=== PATIENT | male | born 1955 | race African-American/Black ===

== ENCOUNTER 2022-07-26 07:46 | Inpatient (IN) | payer BC, MEDICAID ==
[~2022-07-26] VITALS: Ht 177.8 cm; Wt 81.2 kg
[2022-07-26] MEDS ORDERED: PANTOPRAZOLE SODIUM 40 MG/VIAL IV STA (08:03)
[2022-07-26] MEDS ORDERED: ONDANSETRON HCL 4MG/2ML INJ IV STA (08:03)
[2022-07-26] MEDS ORDERED: SODIUM CHLORIDE 0.9% 1,000 ML IV ONE ×2 (08:15→08:30)
[2022-07-26 08:46] LABS: BG BASE EXCESS -4.3 mmol/L (-2.0-2.0); BG CARBOXYHEMOGLOBIN 0.8 % (0.5-1.5); BG DEOXYHEMOGLOBIN 2.1 % (0.0-5.0); BG FRACTION INSPIRED OXYGEN 21; BG METHEMOGLOBIN 0.3 % (0.0-1.5); BG OXYGEN SATURATION 97.9 % (92.0-98.5); BG OXYHEMOGLOBIN 96.8 % (94.0-97.0); BG PCO2 26.3 mmHg (35.0-45.0); BG PH 7.454 (7.350-7.450); BG SAMPLE SITE RIGHT RADIAL; BG TOTAL HEMOGLOBIN 13.6 g/dL (12.0-18.0); BG VENT MODE ROOM AIR
[2022-07-26 09:50] LABS: CLARITY URINE CLEAR (CLEAR); COLOR URINE YELLOW (YELLOW); KETONES URINE 4+ (NEGATIVE); LEUKOCYTE ESTERASE URINE NEGATIVE (NEGATIVE); NITRITE URINE NEGATIVE (NEGATIVE); OCCULT BLOOD URINE TRACE (NEGATIVE); PH URINE 5.5 (4.5-8.0); PROTEIN URINE 2+ (NEGATIVE); SPECIFIC GRAVITY URINE 1.026 (1.005-1.030)
[2022-07-26 10:02] LABS: *AMPHETAMINES SCREEN URINE NEGATIVE (NEGATIVE); *BARBITURATES SCREEN URINE NEGATIVE (NEGATIVE); *BENZODIAZEPINES SCREEN URINE NEGATIVE (NEGATIVE); *COCAINE SCREEN URINE NEGATIVE (NEGATIVE); CANNABINOID URINE SCREEN NEGATIVE (NEGATIVE); METHADONE URINE SCREEN NEGATIVE (NEGATIVE); OPIATES URINE SCREEN NEGATIVE (NEGATIVE); PHENCYCLIDINE URINE SCREEN NEGATIVE (NEGATIVE)
[2022-07-26 10:22] LABS: BASOPHILS % 0.2 % (0.0-2.0); HEMATOCRIT. 39.6 % (42.0-52.0); HEMOGLOBIN. 13.1 g/dL (14.0-18.0); LYMPHOCYTES % 13.8 % (20.0-50.0); MEAN CORPUSCULAR HEMOGLOBIN 29.8 pg (28.0-32.0); MEAN CORPUSCULAR VOLUME 90.2 fL (80.0-94.0); MEAN PLATELET VOLUME 8.9 fl (7.4-10.4); MONOCYTES % 9.2 % (2.0-8.0); NEUTROPHILS % 76.8 % (40.0-76.0); PLATELET 269 x1000/uL (130-400); RED BLOOD CELL COUNT 4.39 mill/uL (4.7-6.1); RED CELL DISTRIBUTION WIDTH 13.2 % (11.6-14.6)
[2022-07-26 10:30] LABS: CHLORIDE 96 mEq/L (98-107)
[2022-07-26 10:35] LABS: INR 1.2; PROTHROMBIN TIME 12.5 sec (9.6-11.0)
[2022-07-26 10:41] LABS: BETA HYDROXYBUTYRATE 5.4 mMol/L (0.0-0.3); ETHANOL BLOOD < 10 mg/dL
[2022-07-26] MEDS ORDERED: INSULIN REGULAR (HUMULIN R) 300UNITS/3ML VIAL IV ONE (11:45)
[2022-07-26] MEDS ORDERED: ACETAMINOPHEN 325MG TABLET PO PRN ×2 (13:45)
[2022-07-26] MEDS ORDERED: MAGNESIUM/ALUMINUM HYDROXIDE/SIMETHICONE 30ML UDC PO PRN (13:45)
[2022-07-26] MEDS: ENOXAPARIN 40MG/0.4ML SYR SUBCUT SCH (13:45)
[2022-07-26] MEDS ORDERED: GUAIFENESIN 200MG/10ML SUGAR FREE UDC PO PRN (13:45)
[2022-07-26] MEDS ORDERED: IPRATROPIUM/ALBUTEROL 0.5-3(2.5)MG/3ML NEB NEB PRN (13:45)
[2022-07-26] MEDS ORDERED: HYDROCODONE/ACETAMINOPHEN 5/325MG TABLET PO PRN (13:45)
[2022-07-26] MEDS ORDERED: CLONIDINE 0.1MG TABLET PO PRN (13:45)
[2022-07-26 16:45] VITALS: BP 149/83
[2022-07-26 16:46] LABS: CHLORIDE 100 mEq/L (98-107)
[2022-07-26 17:03] LABS: LDL CHOLESTEROL 126 mg/dL (5-100); PHOSPHORUS 3.2 mg/dL (2.5-4.9)
[2022-07-26 17:05] LABS: HDL CHOLESTEROL 29 mg/dL (40-59)
[2022-07-26] MEDS: ONDANSETRON HCL 4MG/2ML INJ IV PRN (17:37)
[2022-07-26] MEDS ORDERED: DEXT 5%/0.45% NACL KCL 20MEQ/L 1,000 ML IV ONE (17:45)
[2022-07-26] MEDS: INSULIN REGULAR (HUMULIN R) 300UNITS/3ML VIAL SUBCUT SCH (19:01)
[2022-07-26 20:00] VITALS: BP_SYST 116; BP_SYST 137; BP_DIAS 72; BP_DIAS 78
[2022-07-26] MEDS: INSULIN GLARGINE 100 UNITS/ML SUBCUT SCH (22:00)
[2022-07-27 04:00] VITALS: BP 142/80
[2022-07-27] MEDS ORDERED: DEXTROSE 50% WATER 50ML SYRINGE IV PRN (06:30)
[2022-07-27] MEDS: BLOOD SUGAR DIAGNOSTIC STRIP TEST SCH ×4 (06:32→20:06)
[2022-07-27] MEDS: INSULIN LISPRO 100 UNITS/ML SUBCUT SCH ×5 (06:55→21:00)
[2022-07-27 06:59] LABS: BASOPHILS % 0.4 % (0.0-2.0); HEMATOCRIT. 41.3 % (42.0-52.0); HEMOGLOBIN. 13.5 g/dL (14.0-18.0); LYMPHOCYTES % 17.9 % (20.0-50.0); MEAN CORPUSCULAR HEMOGLOBIN 29.7 pg (28.0-32.0); MEAN CORPUSCULAR VOLUME 91.1 fL (80.0-94.0); MEAN PLATELET VOLUME 8.6 fl (7.4-10.4); MONOCYTES % 9.3 % (2.0-8.0); NEUTROPHILS % 72.4 % (40.0-76.0); PLATELET 291 x1000/uL (130-400); RED BLOOD CELL COUNT 4.53 mill/uL (4.7-6.1); RED CELL DISTRIBUTION WIDTH 12.9 % (11.6-14.6)
[2022-07-27 07:01] LABS: CHLORIDE 103 mEq/L (98-107)
[2022-07-27 08:00] VITALS: BP 120/75
[2022-07-27] MEDS: INSULIN REGULAR (HUMULIN R) 300UNITS/3ML VIAL SUBCUT SCH (09:20)
[2022-07-27 12:00] VITALS: BP 112/64
[2022-07-27] MEDS: ENOXAPARIN 40MG/0.4ML SYR SUBCUT SCH (12:12)
[2022-07-27 16:00] VITALS: BP 109/55
[2022-07-27 20:00] VITALS: BP 120/77
[2022-07-27] MEDS: ONDANSETRON HCL 4MG/2ML INJ IV PRN (20:21)
[2022-07-27] MEDS: INSULIN GLARGINE 100 UNITS/ML SUBCUT SCH (22:00)
[2022-07-28] VITALS: BP 107/64
[2022-07-28 04:00] VITALS: BP 124/79
[2022-07-28] MEDS: BLOOD SUGAR DIAGNOSTIC STRIP TEST SCH ×4 (05:11→20:34)
[2022-07-28 05:46] LABS: HEMATOCRIT 41.8 % (42.0-52.0); HEMOGLOBIN 14.2 g/dL (14.0-18.0); MEAN CORPUSCULAR HEMOGLOBIN 30.1 pg (28.0-32.0); MEAN CORPUSCULAR VOLUME 88.7 fL (80.0-94.0); PLATELET 235 x1000/uL (130-400); RED BLOOD CELL COUNT 4.72 mill/uL (4.7-6.1); RED CELL DISTRIBUTION WIDTH 13.1 % (11.6-14.6)
[2022-07-28] MEDS: INSULIN LISPRO 100 UNITS/ML SUBCUT SCH ×7 (05:47→21:00)
[2022-07-28 06:39] LABS: CHLORIDE 103 mEq/L (98-107)
[2022-07-28 08:00] VITALS: BP 125/45
[2022-07-28] MEDS: ONDANSETRON HCL 4MG/2ML INJ IV PRN ×2 (08:50→15:09)
[2022-07-28 12:00] VITALS: BP 138/88
[2022-07-28] MEDS: ENOXAPARIN 40MG/0.4ML SYR SUBCUT SCH (15:09)
[2022-07-28 16:00] VITALS: BP 125/75
[2022-07-28 20:00] VITALS: BP 125/65
[2022-07-28] MEDS: INSULIN GLARGINE 100 UNITS/ML SUBCUT SCH (21:47)
[2022-07-29] VITALS: BP 100/59
[2022-07-29 03:07] LABS: HEMATOCRIT 43.2 % (42.0-52.0); HEMOGLOBIN 14.3 g/dL (14.0-18.0); MEAN CORPUSCULAR HEMOGLOBIN 29.6 pg (28.0-32.0); PLATELET 222 x1000/uL (130-400); RED BLOOD CELL COUNT 4.85 mill/uL (4.7-6.1); RED CELL DISTRIBUTION WIDTH 13.2 % (11.6-14.6)
[2022-07-29] MEDS ORDERED: ASPIRIN 81MG TABLET PO SCH (03:30)
[2022-07-29 04:47] LABS: CHLORIDE 104 mEq/L (98-107)
[2022-07-29] MEDS ORDERED: IOHEXOL-350 100 ML BOTTLE ONE (06:09)
[2022-07-29] MEDS ORDERED: ATORVASTATIN CALCIUM 40MG TABLET PO SCH (21:00)
== END 2022-07-29 06:30 | disposition short-term general hospital (02) | DRG 637 ==
LOC: ER 07:46 → EDBEDREQTM 08:28 → 8WST 13:02 → EDBEDREQ 13:07 → SUPCPDRO 13:10 → ENRESERV 14:49 → 5EST 07-29 03:43
PROVIDERS: ADMIT Internal Medicine; ATTEND Internal Medicine
DX: E11.10 Type 2 diabetes mellitus with ketoacidosis without coma (principal); I63.512 Cerebral infarction due to unspecified occlusion or stenosis of left middle cerebral artery; E46 Unspecified protein-calorie malnutrition; E87.1 Hypo-osmolality and hyponatremia; D64.9 Anemia, unspecified; E11.628 Type 2 diabetes mellitus with other skin complications; Z20.822 Contact with and (suspected) exposure to COVID-19; E11.42 Type 2 diabetes mellitus with diabetic polyneuropathy; I10 Essential (primary) hypertension; Z79.4 Long term (current) use of insulin; Z91.14 Patient's other noncompliance with medication regimen; Z83.3 Family history of diabetes mellitus; Z68.25 Body mass index [BMI] 25.0-25.9, adult
CPT/HCPCS: 36415; 36600; 70496; 70498; 71045; 73630; 80048; 80053; 80061; 80305; 80320; 81003; 82010; 82375; 82805; 82962; 83036; 83735; 83880; 83930; 83935; 84100; 84443; 84484; 85025; 85027; 86850; 86900; 87426; 93005; 99291; C1893; C9113; J1650; J1815; J2405; J7030; Q9967; G0480